=== PATIENT | female | born 1960 | race Caucasian/White ===

== ENCOUNTER 2020-05-30 13:51 | Inpatient (IN) | payer MEDICAID ==
[~2020-05-30] VITALS: Ht 172.7 cm; Wt 74.2 kg
[~2020-05-30 13:51] MED LIST: METH10TA2 PO
[2020-05-30] MEDS ORDERED: SODIUM CHLORIDE 0.9% 1,000 ML IV ONE ×2 (16:30)
[2020-05-30] MEDS ORDERED: PIPERACILLIN/TAZ 3.375G PREMIX 50 ML IV ONE (16:30)
[2020-05-30 16:35] LABS: BASOPHILS % 0.5 % (0.0-2.0); EOSINOPHILS % 3.1 % (0.0-5.0); HEMATOCRIT. 36.2 % (36.0-48.0); HEMOGLOBIN. 12.1 g/dL (12.0-16.0); LYMPHOCYTES % 23.2 % (20.0-50.0); MONOCYTES % 9.3 % (2.0-8.0); NEUTROPHILS % 63.9 % (40.0-76.0); PLATELET 110 x1000/uL (130-400); RED BLOOD CELL COUNT 4.03 mill/uL (4.2-5.4); RED CELL DISTRIBUTION WIDTH 14.1 % (11.6-14.6)
[2020-05-30] MEDS: VANCOMYCIN 1 G PREMIX 200 ML IV SCH ×2 (17:00→17:35)
[2020-05-30] MEDS ORDERED: ACETAMINOPHEN 325MG TABLET PO STA (17:02)
[2020-05-30] MEDS ORDERED: SODIUM CHLORIDE 0.9% 1000ML BAG (SEPSIS BOLUS) IV ONE (17:15)
[2020-05-30 20:02] LABS: CLARITY URINE CLEAR (CLEAR); COLOR URINE YELLOW (YELLOW); KETONES URINE NEGATIVE (NEGATIVE); LEUKOCYTE ESTERASE URINE TRACE (NEGATIVE); NITRITE URINE POSITIVE (NEGATIVE); OCCULT BLOOD URINE 3+ (NEGATIVE); PROTEIN URINE 2+ (NEGATIVE); SPECIFIC GRAVITY URINE 1.011 (1.005-1.030); UROBILINOGEN URINE 0.2 E.U./dL (0.2-1.0)
[2020-05-30 20:26] LABS: INR 1.2; PROTHROMBIN TIME 12.9 sec (9.6-11.0)
[2020-05-30 21:30] VITALS: BP 143/76
[2020-05-30] MEDS ORDERED: AMLO5TAB88 MT (22:37)
[2020-05-30] MEDS ORDERED: ALBU90AE INH ×2 (22:37)
[2020-05-30] MEDS ORDERED: UMEC1DIS INH (22:37)
[2020-05-30] MEDS ORDERED: CLOT15CR5 TP (22:37)
[2020-05-30] MEDS ORDERED: ASPI-1158 MT (22:37)
[2020-05-30] MEDS ORDERED: HYDR25TA MT (22:37)
[2020-05-30] MEDS ORDERED: ONDANSETRON HCL 4MG/2ML INJ IV PRN (23:15)
[2020-05-30] MEDS ORDERED: PIPERACILLIN/TAZ 3.375G PREMIX 50 ML IV SCH (23:15)
[2020-05-31] VITALS: BP 160/77
[2020-05-31] MEDS: SODIUM CHLORIDE 0.9% 1,000 ML IV SCH ×3 (00:09→17:20)
[2020-05-31] MEDS: ACETAMINOPHEN 650MG/20.3ML UDC GT PRN ×2 (00:20→07:28)
[2020-05-31] MEDS: PIPERACILLIN/TAZOBACTAM 3.375 G in DEXT 5% WATER 100 ML IV SCH ×3 (01:42→17:22)
[2020-05-31] MEDS: VANCOMYCIN 1 G PREMIX 200 ML IV SCH ×2 (01:48→21:01)
[2020-05-31 04:00] VITALS: BP 150/74
[2020-05-31 08:11] VITALS: BP 165/88
[2020-05-31] MEDS: ENOXAPARIN 40MG/0.4ML SYR SUBCUT SCH (09:53)
[2020-05-31 11:06] LABS: BASOPHILS % 0.6 % (0.0-2.0); EOSINOPHILS % 3.1 % (0.0-5.0); HEMOGLOBIN. 11.3 g/dL (12.0-16.0); LYMPHOCYTES % 15.5 % (20.0-50.0); MEAN CORPUSCULAR HEMOGLOBIN 29.5 pg (28.0-32.0); MEAN CORPUSCULAR VOLUME 88.3 fL (81.0-99.0); MEAN PLATELET VOLUME 9.8 fl (7.4-10.4); MONOCYTES % 9.1 % (2.0-8.0); NEUTROPHILS % 71.7 % (40.0-76.0); PLATELET 126 x1000/uL (130-400); RED BLOOD CELL COUNT 3.85 mill/uL (4.2-5.4); RED CELL DISTRIBUTION WIDTH 14.2 % (11.6-14.6)
[2020-05-31] MEDS: LOSARTAN POTASSIUM 25 MG TABLET PO SCH (12:06)
[2020-05-31] MEDS: HYDROCODONE/ACETAMINOPHEN 5/325MG TABLET PO PRN ×3 (12:08→23:22)
[2020-05-31 16:00] VITALS: BP 149/74
[2020-05-31 20:35] VITALS: BP 140/76
[2020-06-01] VITALS: BP 149/72
[2020-06-01] MEDS: SODIUM CHLORIDE 0.9% 1,000 ML IV SCH ×2 (01:18→11:35)
[2020-06-01 04:00] VITALS: BP 140/75
[2020-06-01] MEDS: HYDROCODONE/ACETAMINOPHEN 5/325MG TABLET PO PRN ×4 (06:51→22:38)
[2020-06-01 08:49] VITALS: BP 159/76
[2020-06-01] MEDS: ENOXAPARIN 40MG/0.4ML SYR SUBCUT SCH (09:54)
[2020-06-01] MEDS: LOSARTAN POTASSIUM 25 MG TABLET PO SCH (09:54)
[2020-06-01 12:02] VITALS: BP 151/61
[2020-06-01] MEDS: VANCOMYCIN 1 G PREMIX 200 ML IV SCH (13:34)
[2020-06-01 16:19] VITALS: BP 148/73
[2020-06-01 20:00] VITALS: BP 129/77
[2020-06-02 00:44] VITALS: BP 116/76
[2020-06-02 04:00] VITALS: BP 128/61
[2020-06-02] MEDS: HYDROCODONE/ACETAMINOPHEN 5/325MG TABLET PO PRN ×4 (04:54→19:15)
[2020-06-02 08:00] VITALS: BP 139/85
[2020-06-02] MEDS: VANCOMYCIN 1 G PREMIX 200 ML IV SCH (09:15)
[2020-06-02] MEDS: LOSARTAN POTASSIUM 25 MG TABLET PO SCH (09:15)
[2020-06-02] MEDS: ENOXAPARIN 40MG/0.4ML SYR SUBCUT SCH (09:18)
[2020-06-02 12:00] VITALS: BP 131/82
[2020-06-02] MEDS: GABAPENTIN 100MG CAPSULE PO SCH ×2 (15:00→22:46)
[2020-06-02 16:00] VITALS: BP 113/71
[2020-06-02 20:35] VITALS: BP 104/68
[2020-06-03 00:40] VITALS: BP 129/72
[2020-06-03] MEDS: VANCOMYCIN 1 G PREMIX 200 ML IV SCH ×2 (02:22→20:23)
[2020-06-03] MEDS: HYDROCODONE/ACETAMINOPHEN 5/325MG TABLET PO PRN ×4 (02:35→21:12)
[2020-06-03 04:00] VITALS: BP 136/71
[2020-06-03] MEDS: GABAPENTIN 100MG CAPSULE PO SCH ×3 (07:00→21:12)
[2020-06-03 08:00] VITALS: BP 127/66
[2020-06-03] MEDS: ENOXAPARIN 40MG/0.4ML SYR SUBCUT SCH (09:36)
[2020-06-03] MEDS: LOSARTAN POTASSIUM 25 MG TABLET PO SCH (09:36)
[2020-06-03 12:00] VITALS: BP 144/70
[2020-06-03 16:00] VITALS: BP 132/84
[2020-06-03 20:00] VITALS: BP 115/78
[2020-06-04 00:05] VITALS: BP 128/66
[2020-06-04 04:00] VITALS: BP 130/69
[2020-06-04] MEDS: GABAPENTIN 100MG CAPSULE PO SCH ×2 (05:46→13:27)
[2020-06-04] MEDS: HYDROCODONE/ACETAMINOPHEN 5/325MG TABLET PO PRN (05:53)
[2020-06-04 08:00] VITALS: BP 117/47
[2020-06-04] MEDS: ENOXAPARIN 40MG/0.4ML SYR SUBCUT SCH (09:07)
[2020-06-04] MEDS: LOSARTAN POTASSIUM 25 MG TABLET PO SCH (09:07)
[2020-06-04 12:00] VITALS: BP 123/66
[2020-06-04 16:00] VITALS: BP 132/78
[2020-06-04 16:24] VITALS: BP 132/78
[2020-06-04] MEDS ORDERED: VANCOMYCIN 750 MG PREMIX 150 ML IV SCH (20:00)
== END 2020-06-04 17:45 | disposition home or self-care (01) | DRG 383 ==
LOC: ER 14:02 → 6WST 18:41 → EDBEDREQ 18:53 → EDBEDREQSVC 18:53 → EDBEDREQTM 18:53 → ENRESERV 20:13
PROVIDERS: ADMIT Internal Medicine; ATTEND Internal Medicine
DX: L03.116 Cellulitis of left lower limb (principal); L03.115 Cellulitis of right lower limb; I83.009 Varicose veins of unspecified lower extremity with ulcer of unspecified site; L97.909 Non-pressure chronic ulcer of unspecified part of unspecified lower leg with unspecified severity; I10 Essential (primary) hypertension; F19.11 Other psychoactive substance abuse, in remission; Z59.0 Homelessness; Z79.899 Other long term (current) drug therapy; E87.8 Other disorders of electrolyte and fluid balance, not elsewhere classified
CPT/HCPCS: 36415; 71045; 80048; 80202; 81003; 83605; 85025; 93005; 93970; 96365; 99285; J1650; J2405; J2543; J3370; J7030; J7060